=== PATIENT | male | born 1995 | race Caucasian/White ===

== ENCOUNTER 2017-12-07 13:29 | Emergency (ER) | payer OTHER ==
[~2017-12-07] VITALS: Ht 180.3 cm; Wt 74.8 kg
[~2017-12-07 13:29] MED LIST: ARIP10 PO; Ativan1 MG PO; BENZ2 PO; CEFA500 PO; CEFU500 PO; CLIN300 PO; CODACEE120 PO; CRUTCH USE; Cleocin HCl300 MG PO; HYDACE5 PO; HYDACE7.5L PO; HYDHCL25 PO; IBUP800 PO; METPHE20ER PO; OLAN10 PO; PENVK500 PO; PROM25 PO; Periogard473 ML MM; QUET300 PO; RISP1; RISP1 PO; TYLECOD3 PO
[2017-12-07] MEDS ORDERED: OLAN10 PO (13:54)
== END 2017-12-07 14:04 | disposition home or self-care (01) ==
LOC: ER 13:29
DX: Z76.0 Encounter for issue of repeat prescription (principal); F17.200 Nicotine dependence, unspecified, uncomplicated; Z79.899 Other long term (current) drug therapy; Z88.8 Allergy status to other drugs, medicaments and biological substances; F31.9 Bipolar disorder, unspecified; F20.9 Schizophrenia, unspecified
CPT/HCPCS: 99281

== ENCOUNTER 2018-02-12 15:05 | Emergency (ER) | payer OTHER ==
[~2018-02-12] VITALS: Ht 177.8 cm; Wt 74.8 kg
== END 2018-02-12 16:41 | disposition home or self-care (01) ==
LOC: ER 15:05
DX: S91.311A Laceration without foreign body, right foot, initial encounter (principal); Z88.8 Allergy status to other drugs, medicaments and biological substances; Z79.899 Other long term (current) drug therapy; F17.210 Nicotine dependence, cigarettes, uncomplicated; W25.XXXA Contact with sharp glass, initial encounter
CPT/HCPCS: 99282

== ENCOUNTER 2019-06-25 16:43 | Observation (INO) | payer OTHER ==
[~2019-06-25] VITALS: Ht 180.3 cm; Wt 71.2 kg
[2019-06-25] MEDS ORDERED: OLAN5 PO (19:01)
== END 2019-06-25 19:10 | disposition home or self-care (01) ==
LOC: ER 16:43 → EOR 16:44
PROVIDERS: ADMIT Emergency Medicine
DX: F20.9 Schizophrenia, unspecified (principal); F31.9 Bipolar disorder, unspecified; Z91.048 Other nonmedicinal substance allergy status; Z79.899 Other long term (current) drug therapy
CPT/HCPCS: 99285; G0378

== ENCOUNTER 2025-03-25 09:16 | Emergency (ER) | payer OTHER ==
[~2025-03-25] VITALS: Ht 180.3 cm; Wt 93.0 kg
[~2025-03-25 09:16] MED LIST changes: +OLAN5 PO
[2025-03-25 09:30] VITALS: BP 145/83
== END 2025-03-25 09:40 | disposition home or self-care (01) ==
LOC: ER 09:16
DX: U07.1 COVID-19 (principal); F17.200 Nicotine dependence, unspecified, uncomplicated
CPT/HCPCS: 99282